=== PATIENT | male | born 1970 | race Caucasian/White ===

== ENCOUNTER 2018-01-24 20:23 | Emergency (ER) | payer BC, SELFPAY ==
[2018-01-24 20:26] VITALS: BP 147/86; PULSE 87; RESP 16; TEMP 37; O2SAT 96; BMI 22.9
[2018-01-24] MEDS: 0.9% Normal Saline 1,000 ML 1000 ML IV (20:56)
[2018-01-24 21:07] LABS: Absolute Lymphocyte Count 1.02 X10^3/ul (0.83-4.51); Absolute Neutrophil Count 7.7 X10^3/uL (2.0-7.7); Basophil# 0.04 X10^3/uL; Basophil% 0.4 % (0-1); Eosinophil# 0.04 X10^3/uL; Eosinophils% 0.4 % (0-5); Hematocrit 40.5 % (40-54); Hemoglobin 13.6 g/dl (13.0-16.5); Lymphocyte # 1.02 X10^3/ul (4.0); Lymphocyte % 11.1 % (19-41); Mean Corp Hgb Conc 33.6 g/gl (32-36); Mean Corpuscular Hgb 29.4 pg (27.0-32.0); Mean Corpuscular Volume 87.7 fL (80-94); Monocyte# 0.31 X10^3/uL; Monocyte% 3.4 % (0-10); Neutrophil # 7.74 X10^3/uL (2.7-7.7); Neutrophil % 84.5 % (47-70); Platelet Count 295 K/mm3 (150-450); RBC Distribution Width CV 13.9 % (11.6-14.6); RBC Distribution Width SD 44.3 fl (35.1-43.9); Red Blood Count 4.62 M/mm3 (4.6-6.2); White Blood Count 9.2 K/mm3 (4.4-11.0)
[2018-01-24 21:10] LABS: POSITIVE COUNT NO; POSITIVE DIFFERENTIAL NO; POSITIVE MORPHOLOGY NO
[2018-01-24 21:34] LABS: Anion Gap 6 (5-15); BUN 6 mg/dL (7-18); BUN/Creat Ratio 6.6 RATIO (10-20); Calcium,Total 8.6 mg/dL (8.5-10.1); Chloride 101 mmol/L (98-107); Creatinine, Serum 0.91 mg/dL (0.70-1.30); EST Glomerular Filtration Rate 94 mL/min (>60); Est Glom Filt Rate - Afr Amer 114 mL/min (>60); Estimated Creatinine Clearance 103.01 ml/min; Glucose 153 mg/dL (74-106); Potassium 4.5 mmol/L (3.5-5.1); Sodium Level 133 mmol/L (136-145)
--- NOTE | 2018-01-24 21:54 | ED.DCSUM_ITS ---
- ER Visit Summary Date of Service: 01/24/18 Chief Complaint: Difficulty concentrating and focusing History of Present Illness: The patient is a 47 M with no primary care physician. 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 It was very hot. States that he began having difficulty concentrating and focusing. States that he went to the break room and this is essentially resolved. It lasted approximately 1 hour. There were no other associated symptoms. No headache, numbness, weakness, double vision, slurred speech, or vertigo. He denies being lightheaded. Review of systems: General: No fever, chills, cold sweats. Cardiovascular: No chest pain, palpitations. Respiratory: No cough, shortness of breath, dyspnea on exertion. Gastrointestinal: No abdominal pain, nausea, vomiting, diarrhea, melena, or hematochezia. Genitourinary: No dysuria, frequency, hematuria. Skin: No rash. Neuro: No headache, numbness, weakness. Physical Examination: Vitals: Stable. Afebrile. General: Well-nourished and well-developed. Head: Normocephalic atraumatic. Neck: Supple, no lymphadenopathy. No JVD. Nontender. Cardiovascular: Regular rate and rhythm. No murmurs. Respiratory: No respiratory distress. Clear to auscultation bilaterally. Abdominal: Soft, nontender, nondistended, normal bowel sounds. No guarding, rebound, or peritoneal signs. Back: Nontender. Extremities: Nontender, no edema. Skin: Normal color, no rash. Neurologic: Alert and oriented ?3. Cranial nerves II through XII are intact. Normal strength and sensation. Psych: Normal affect. Test Results: CBC is remarkable for segment neutrophils 85 and lymphocytes of 11. Chem-7 is more for sodium 133, glucose 153, BUN of 6. Emergency Department Course and Treatment: Patient was given a liter bolus of normal saline is remained asymptomatic while here. Treatment Plan: Patient will be discharged instructions to follow-up with the [facility] in 1-2 days if not improving. Return to the emergency department for any worsening symptoms. Disposition: To home in improved and stable condition. Impression: 1. Difficulty concentrating, uncertain cause. This note was generated with [employer] software. It may contain incorrect words, spelling, and punctuation that were not noted in review of the chart prior to signing ED Disposition - Plan for ED Patient: Disposition: Home or Assisted Living Chief Complaint: Confusion Instructions: ED Confusion Referrals: Marta Medel [NON-STAFF] - 1-2 Days if not improving
[2018-01-24 22:04] VITALS: BP 132/79; PULSE 79; RESP 16; O2SAT 100
== END 2018-01-24 22:25 | disposition home or self-care (01) ==
PROVIDERS: Emergency Provider Emergency Medicine
DX: R41.82 Altered mental status, unspecified (principal); X30.XXXA Exposure to excessive natural heat, initial encounter; Y93.9 Activity, unspecified; Y92.89 Other specified places as the place of occurrence of the external cause; Y99.0 Civilian activity done for income or pay; F17.210 Nicotine dependence, cigarettes, uncomplicated
CPT/HCPCS: 80048; 85025; 96360; 99285; J7030; A4216

== ENCOUNTER 2018-01-25 00:20 | Emergency (ER) | payer BC, SELFPAY ==
[2018-01-25 00:20] VITALS: BP 159/89; PULSE 94; RESP 18; TEMP 36.7; O2SAT 100; BMI 20.9
[2018-01-25] MEDS: 0.9% Normal Saline 1,000 ML 150 ML IV (00:49)
--- NOTE | 2018-01-25 00:54 | ED.RN ---
NO OLD EKG'S IN MUSE
[2018-01-25 01:00] LABS: Absolute Lymphocyte Count 1.56 X10^3/ul (0.83-4.51); Absolute Neutrophil Count 5.8 X10^3/uL (2.0-7.7); Basophil# 0.03 X10^3/uL; Basophil% 0.4 % (0-1); Eosinophil# 0.05 X10^3/uL; Eosinophils% 0.6 % (0-5); Hematocrit 40.2 % (40-54); Hemoglobin 13.5 g/dl (13.0-16.5); Lymphocyte # 1.56 X10^3/ul (4.0); Lymphocyte % 20.1 % (19-41); Mean Corp Hgb Conc 33.6 g/gl (32-36); Mean Corpuscular Hgb 29.2 pg (27.0-32.0); Mean Platelet Vol. 8.6 fl (6.2-12.0); Monocyte% 3.9 % (0-10); Neutrophil # 5.81 X10^3/uL (2.7-7.7); Neutrophil % 74.9 % (47-70); Platelet Count 247 K/mm3 (150-450); RBC Distribution Width CV 13.8 % (11.6-14.6); RBC Distribution Width SD 43.9 fl (35.1-43.9); Red Blood Count 4.62 M/mm3 (4.6-6.2); White Blood Count 7.8 K/mm3 (4.4-11.0)
[2018-01-25 01:01] LABS: Bedside Glucose 140 mg/dL (70-110)
[2018-01-25 01:05] LABS: Carboxyhemoglobin Frac (CO) 10.9 % (0.0-1.5)
[2018-01-25 01:09] LABS: POSITIVE COUNT NO; POSITIVE DIFFERENTIAL NO; POSITIVE MORPHOLOGY NO
[2018-01-25 01:11] LABS: Anion Gap 9 (5-15); BUN 5 mg/dL (7-18); Calcium,Total 8.4 mg/dL (8.5-10.1); Chloride 105 mmol/L (98-107); Creatinine, Serum 0.83 mg/dL (0.70-1.30); EST Glomerular Filtration Rate 105 mL/min (>60); Est Glom Filt Rate - Afr Amer 127 mL/min (>60); Estimated Creatinine Clearance 109.25 ml/min; Glucose 123 mg/dL (74-106); Potassium 3.7 mmol/L (3.5-5.1); Sodium Level 138 mmol/L (136-145)
[2018-01-25 01:30] LABS: Bacteria 0 SEEN /hpf (None Seen); Mucous, Urine 0 SEEN /hpf (<or=2+); Red Blood Cells-Urine 0 SEEN /hpf (0-5); Squamous Epithelial Cells - UA 0 SEEN /hpf (0-5); White Blood Cells 0 SEEN /hpf (0-5)
[2018-01-25 01:33] LABS: Color, Urine Yellow (Yellow); Glucose, Dipstick Normal (Normal); Ketone-Dipstick Negative (Negative); Leukocyte Esterase-Dipstick Negative /ul (Negative); Nitrite-Dipstick Negative (Negative); Occult Blood-Urine Negative /ul (Negative); Protein-Dipstick Negative (Negative); Specific Gravity, Urine 1.015 (1.002-1.030); Urine Bilirubin Dipstick Negative (Negative); Urine Clarity Clear (Clear); Urine Urobilinogen Normal (Normal)
--- NOTE | 2018-01-25 01:40 | ED.VISSUMM ---
- ER Visit Summary Date of Service: 01/25/18 Chief Complaint: Does not feel right History of Present Illness: The patient is a 47 M who was seen in the ER earlier this evening for confusion and difficulty focusing. Patient was at work in a hot environment when the symptoms started. Symptoms seem to improve when he moved out of the heat. Labs were unremarkable he was given IV fluids in the ED. Patient states he felt fine when he left the ED and he went back to work. He had recurrent symptoms after arriving back at work. Patient states he just feels that he is not thinking clearly. He denies headache or lightheadedness. He denies chest pain, shortness of breath, nausea, vomiting, or diarrhea. Coworker states that there is no one else with similar symptoms. Physical Examination: Blood pressure is 159/89, temperature 98.1, heart rate 94, respiratory rate 18, pulse ox 100% on room air. Head and neck examination is unremarkable. Heart is regular rate and rhythm. Lung sounds are clear. Abdomen is soft nontender. Neuro exam reveals normal strength and sensation throughout. Test Results: EKG is sinus at 79 with no sign of ischemia. CBC and chemistry studies are normal. BGT on arrival is 140. Carboxyhemoglobin level is 10.9. Patient is a smoker. Urinalysis is normal. Urine tox screen is positive for cannabinoids. CT head is normal. Emergency Department Course and Treatment: Patient was given IV fluids here and has had resolution of his symptoms. I spoke with the patient about the findings on his tox screen. Patient is written off work for 2 days. He is encouraged to increase fluids. Treatment Plan: [] Disposition: Discharge Impression: Confusion, improved This note was generated with [employer] dictation software. It may contain incorrect words, spelling, and punctuation that were not noted in review of the chart prior to signing ED Disposition - Plan for ED Patient: Disposition: Home or Assisted Living Chief Complaint: General Illness Instructions: ED Confusion Additional Instructions: Increase fluids. Off work for 2 days. Doctor referral list provided.
[2018-01-25 01:48] LABS: Amphetamine Urine VISTA NEGATIVE (<1000 ng/mL); Barbiturate Urine VISTA NEGATIVE (< 200 ng/mL); Benzodiazepine Urine VISTA NEGATIVE (< 200 ng/mL); Cocaine Urine VISTA NEGATIVE (< 300 ng/mL); Ecstacy Urine VISTA NEGATIVE (< 500 ng/mL); Methadone Urine VISTA NEGATIVE (< 300 ng/mL); PCP Urine VISTA NEGATIVE (< 25 ng/mL); THC Urine VISTA POSITIVE (< 50 ng/mL); Vista UDS pH Range 8
[2018-01-25 02:23] VITALS: BP 140/90; PULSE 79; RESP 18; O2SAT 97
[2018-01-25 03:27] VITALS: BP 151/100; PULSE 106; RESP 18; O2SAT 97
--- NOTE | 2018-01-25 03:29 | ED.DEP ---
ED Disposition - Plan for ED Patient: Disposition: Home or Assisted Living Chief Complaint: General Illness Instructions: ED Confusion Additional Instructions: Increase fluids. Off work for 2 days. Doctor referral list provided.
[2018-01-25 03:41] VITALS: BP 152/94; PULSE 87; RESP 19; O2SAT 98
== END 2018-01-25 03:43 | disposition home or self-care (01) ==
PROVIDERS: Emergency Provider Emergency Medicine
DX: R41.0 Disorientation, unspecified (principal); Z72.0 Tobacco use
CPT/HCPCS: 70450; 80048; 80307; 81001; 82375; 82962; 85025; 93005; 96360; 96361; 99284; A4216